=== PATIENT | male | born 1970 | race Hispanic/Latino ===

== ENCOUNTER 2020-11-22 15:28 | Emergency (ER) | payer BC, SELFPAY ==
--- NOTE | 2020-11-22 15:42 | ER ---
Nurse's Notes [facility] Name: Isaías Briceno Age: 50 yrs Sex: Male : 1970 Arrival Date: 11/22/2020 Time: 15:32 Bed Waiting Private MD: Diagnosis: Diarrhea, unspecified Presentation: 11/22 15:35 Chief complaint: Patient states: "I need a release to go back to work. I was having jd3 stomach pain, but it is already better.". Coronavirus screen: At this time, the client does not indicate any symptoms associated with coronavirus-19. Ebola Screen: Patient negative for fever greater than or equal to 101.5 degrees Fahrenheit, and additional compatible Ebola Virus Disease symptoms. Initial Sepsis Screen: Does the patient meet any 2 criteria? No. Patient's initial sepsis screen is negative. Does the patient have a suspected source of infection? No. Patient's initial sepsis screen is negative. Risk Assessment: Do you want to hurt yourself or someone else? Patient reports no desire to harm self or others. Onset of symptoms was November 22, 2020. 15:35 Acuity: DADA 5 jd3 15:35 Method Of Arrival: Ambulatory jd3 Historical: - Allergies: 15:39 No Known Allergies; jd3 - PMHx: 15:39 Hypertension; jd3 - PSHx: 15:39 None; jd3 - Immunization history:: Adult Immunizations unknown. - Social history:: Smoking status: unknown. Screenin:40 Abuse screen: Denies threats or abuse. Nutritional screening: No deficits noted. jd3 Tuberculosis screening: No symptoms or risk factors identified. Fall Risk Ambulatory Aid- None/Bed Rest/Nurse Assist (0 pts). Gait- Normal/Bed Rest/Wheelchair (0 pts) Mental Status- Oriented to own ability (0 pts). Total August Fall Scale indicates No Risk (0-24 pts). Assessment: 15:39 General: Appears in no apparent distress. comfortable, Behavior is calm, cooperative, jd3 appropriate for age. Pain: Denies pain. Neuro: Level of Consciousness is awake, alert, obeys commands, Oriented to person, place, time, situation. Cardiovascular: Denies chest pain, Capillary refill < 3 seconds Patient's skin is warm and dry. Respiratory: Airway is patent Respiratory effort is even, unlabored, Respiratory pattern is regular, symmetrical, Denies cough, shortness of breath. GI: Abdomen is flat, non-distended, Patient currently denies abdominal pain, constipation, diarrhea, nausea, vomiting. : No signs and/or symptoms were reported regarding the genitourinary system. EENT: No signs and/or symptoms were reported regarding the EENT system. Derm: Skin is intact, Skin is dry, Skin is normal, Skin temperature is warm. Musculoskeletal: Circulation, motion, and sensation intact. Range of motion: intact in all extremities. Vital Signs: 15:37 BP 149 / 91; Pulse 76; Resp 15 S; Temp 98.6(TE); Pulse Ox 99% on R/A; Pain 0/10; jd3 ED Course: 15:32 Patient arrived in ED. mr 15:36 Caitlyn Elmore F[facility]-C [facility]. kb 15:36 Chente Delaney MD is Attending Physician. kb 15:37 Triage completed. jd3 15:38 Arm band placed on. jd3 15:40 Patient has correct armband on for positive identification. Bed in low position. Call jd3 light in reach. Side rails up X 1. Pulse ox on. NIBP on. 15:40 No provider procedures requiring assistance completed. Patient did not have IV access jd3 during this emergency room visit. 15:45 Alberto Grant, RN is Primary Nurse. jd3 Administered Medications: No medications were administered Outcome: 15:41 Discharge ordered by . kb 15:45 Discharged to home ambulatory. jd3 15:45 Condition: stable 15:45 Discharge instructions given to patient, Instructed on discharge instructions, follow up and referral plans. Demonstrated understanding of instructions, follow-up care. 15:45 Patient left the ED. jd3 Signatures: Caitlyn Elmore FNP-C FNP-Alma Anuja Chaidez mr Alberto Grant, RN RN jd3
--- NOTE | 2020-11-22 15:42 | EDPHYS ---
Physician Documentation [facility] Name: Isaías Briceno Age: 50 yrs Sex: Male : 1970 Arrival Date: 11/22/2020 Time: 15:32 Bed Waiting Private MD: ED Physician Chente Delaney HPI: 11/22 16:07 This 50 yrs old Male presents to ER via Ambulatory with complaints of needs kb work release. 16:08 The patient presents to the emergency department with diarrhea. Onset: The kb symptoms/episode began/occurred 4 day(s) ago. Possible causes: etoh. The symptoms are aggravated by nothing. The symptoms are alleviated by nothing. Associated signs and symptoms: The patient has no apparent associated signs or symptoms. Severity of symptoms: At their worst the symptoms were mild moderate in the emergency department the symptoms have resolved 1 day(s) prior to arrival. The patient has not experienced similar symptoms in the past. The patient has not recently seen a physician. Pt reports diarrhea over the weekend that he believes was due to etoh intake. Called into work yesterday. Diarrhea resolved yesterday morning. Work wants a note for him to return. Historical: - Allergies: 15:39 No Known Allergies; jd3 - PMHx: 15:39 Hypertension; jd3 - PSHx: 15:39 None; jd3 - Immunization history:: Adult Immunizations unknown. - Social history:: Smoking status: unknown. ROS: 16:07 Constitutional: Negative for fever, chills, and weight loss, Cardiovascular: Negative kb for chest pain, palpitations, and edema, Respiratory: Negative for shortness of breath, cough, wheezing, and pleuritic chest pain, Abdomen/GI: Negative for abdominal pain, nausea, vomiting, diarrhea, and constipation, MS/Extremity: Negative for injury and deformity, Skin: Negative for injury, rash, and discoloration, Neuro: Negative for headache, weakness, numbness, tingling, and seizure. Exam: 16:07 Constitutional: This is a well developed, well nourished patient who is awake, alert, kb and in no acute distress. Head/Face: Normocephalic, atraumatic. Chest/axilla: Normal chest wall appearance and motion. Nontender with no deformity. No lesions are appreciated. Cardiovascular: Regular rate and rhythm with a normal S1 and S2. No gallops, murmurs, or rubs. Normal PMI, no JVD. No pulse deficits. Respiratory: Lungs have equal breath sounds bilaterally, clear to auscultation and percussion. No rales, rhonchi or wheezes noted. No increased work of breathing, no retractions or nasal flaring. Abdomen/GI: Soft, non-tender, with normal bowel sounds. No distension or tympany. No guarding or rebound. No evidence of tenderness throughout. Skin: Warm, dry with normal turgor. Normal color with no rashes, no lesions, and no evidence of cellulitis. MS/ Extremity: Pulses equal, no cyanosis. Neurovascular intact. Full, normal range of motion. 16:07 Neuro: Orientation: is normal, Mentation: is normal, Motor: is normal, Sensation: is normal, Gait: is steady. Vital Signs: 15:37 BP 149 / 91; Pulse 76; Resp 15 S; Temp 98.6(TE); Pulse Ox 99% on R/A; Pain 0/10; jd3 MDM: 15:37 Patient medically screened. kb 16:06 Data reviewed: vital signs, nurses notes. Data interpreted: Pulse oximetry: on room air kb is 99 %. Interpretation: normal. Counseling: I had a detailed discussion with the patient and/or guardian regarding: the historical points, exam findings, and any diagnostic results supporting the discharge/admit diagnosis, the need for outpatient follow up, a family practitioner, to return to the emergency department if symptoms worsen or persist or if there are any questions or concerns that arise at home. Administered Medications: No medications were administered Disposition: 16:54 Co-signature as Attending Physician, Chente Delaney MD. rn Disposition: 11/22/20 15:41 Discharged to Home. Impression: Diarrhea, unspecified. - Condition is Stable. - Discharge Instructions: Diarrhea, Adult, [id number]. - Work release form, Medication Reconciliation Form, Thank You Letter, Antibiotic Education, Prescription Opioid Use form. - Follow up: Emergency Department; When: As needed; Reason: Worsening of condition. Follow up: Private Physician; When: 2 - 3 days; Reason: Recheck today's complaints, Continuance of care, Re-evaluation by your physician. Signatures: Caitlyn Elmore, ANDREW-C ANDREW-Ckb Chente Delaney MD MD rn Davies, Jonathon, RN RN jd3 Corrections: (The following items were deleted from the chart) 15:45 15:41 11/22/2020 15:41 Discharged to Home. Impression: Diarrhea, unspecified. Condition jd3 is Stable. Forms are Medication Reconciliation Form, Thank You Letter, Antibiotic Education, Prescription Opioid Use. Follow up: Emergency Department; When: As needed; Reason: Worsening of condition. Follow up: Private Physician; When: 2 - 3 days; Reason: Recheck today's complaints, Continuance of care, Re-evaluation by your physician. kb
[2020-11-22 16:02] VITALS: BP 149/91; TEMP 98.6; O2SAT 99
== END 2020-11-22 15:45 | disposition home or self-care (01) ==
LOC: ER 15:28
DX: Z02.79 Encounter for issue of other medical certificate (principal)
CPT/HCPCS: 99283